=== PATIENT | female | born 1980 | race Hispanic/Latino ===

== ENCOUNTER 2018-06-14 22:29 | Observation (INO) | payer OTHER ==
[~2018-06-14] VITALS: Ht 157.5 cm; Wt 83.5 kg
[2018-06-14] MEDS ORDERED: KETOROLAC TROMETHAMINE 30 MG/ML VIAL IV STA (22:52)
[2018-06-14] MEDS ORDERED: ONDANSETRON HCL INJ 2 MG/ML VIAL IV STA (22:52)
[2018-06-14 23:22] LABS: BASOPHILS % 0.2 % (0.0-1.0); EOSINOPHILS # (AUTO) 0.2 (0.0-0.4); EOSINOPHILS % 1.6 % (0.0-6.0); HEMATOCRIT 32.9 % (34.2-44.1); HEMOGLOBIN 9.7 g/dL (12.0-16.0); LYMPHOCYTES % 32.3 % (18.0-39.1); MEAN CORPUSCULAR HEMOGLOBIN 22.2 pg (28-32); MEAN CORPUSCULAR HGB CONC 29.5 g/dL (31-35); MEAN CORPUSCULAR VOLUME 75.5 fL (81-99); MONOCYTES % 8.2 % (4.4-11.3); NEUTROPHILS # (AUTO) 7.1 (2.1-6.9); NEUTROPHILS % 57.2 % (38.7-80.0); PLATELET COUNT 383 x10e3/uL (140-360); RED BLOOD COUNT 4.36 x10e6/uL (3.6-5.1); RED CELL DISTRIBUTION WIDTH 15.9 % (11.7-14.4)
[2018-06-14 23:36] LABS: ALANINE AMINOTRANSFERASE 26 IU/L (0-55); ALBUMIN 3.6 g/dL (3.5-5.0); ALBUMIN/GLOBULIN RATIO 0.9 (0.8-2.0); ALKALINE PHOSPHATASE 88 IU/L (40-150); ANION GAP 14.8 mmol/L (8-16); BLOOD UREA NITROGEN 14 mg/dL (7-26); BUN/CREATININE RATIO 18 (6-25); CALCIUM 9.2 mg/dL (8.4-10.2); CARBON DIOXIDE 25 mmol/L (22-29); CHLORIDE 105 mmol/L (98-107); CREATININE, SERUM 0.77 mg/dL (0.57-1.11); EST GLOMERULAR FILTRATION RATE > 60 ML/MIN (60-); GLUCOSE 107 mg/dL (74-118); POTASSIUM 3.8 mmol/L (3.5-5.1); SODIUM 141 mmol/L (136-145)
[2018-06-14] MEDS ORDERED: LEVOTHYROXINE50 MCG PO (23:44)
[2018-06-14] MEDS ORDERED: PREDNISONE5 MG PO (23:44)
[2018-06-14 23:46] LABS: BILIRUBIN,URINE NEGATIVE (NEGATIVE); CLARITY,URINE HAZY (CLEAR); COLOR,URINE YELLOW (YELLOW); KETONES,URINE TRACE (NEGATIVE); LEUKOCYTE ESTERASE ,URINE 1+ (NEGATIVE); NITRITE,URINE NEGATIVE (NEGATIVE); PREGNANCY TEST, URINE NEGATIVE (NEGATIVE); PROTEIN,URINE DIPSTICK NEGATIVE (NEGATIVE); URINE UROBILINOGEN 0.2 mg/dL (0.2 - 1)
[2018-06-14 23:57] LABS: BACTERIA,URINE FEW /HPF; EPITHELIAL CELLS,URINE RARE /LPF; RBC,URINE 0-5 /HPF (0-5); WBC,URINE (MAN) >50 /HPF (0-5)
[2018-06-14] MEDS ORDERED: HYDROMORPHONE 1MG/1ML INJ IV STA (23:59)
[2018-06-15] MEDS ORDERED: ONDANSETRON HCL INJ 2 MG/ML VIAL IV STA (00:01)
--- NOTE | 2018-06-15 00:35 | Diagnostic Imaging Report ---
EXAM: CT ABDOMEN AND PELVIS without IV CONTRAST INDICATION: Left flank pain COMPARISON: None TECHNIQUE: The abdomen and pelvis were scanned using a multidetector helical scanner. Coronal and sagittal reformations were obtained. Renal stone protocol performed. IV Contrast: None Oral Contrast: None CTDIvol has been reviewed. It is below the limits set by the Radiation Protocol Committee (RPC). FINDINGS: LOWER THORAX: No consolidations LIVER: No masses BILIARY: Normal gallbladder. No ductal dilation. SPLEEN: No masses PANCREAS: No masses ADRENALS: No nodules RIGHT KIDNEY: No nephroureterolithiasis or hydronephrosis. LEFT KIDNEY: There is a 3 mm stone at the left ureterovesicular junction resulting in mild to moderate hydroureteronephrosis. GI TRACT: No wall thickening or obstruction. Small sliding hiatal hernia. Normal appendix. VESSELS: Unremarkable PERITONEUM/RETROPERITONEUM: No free air or fluid LYMPH NODES: No lymphadenopathy REPRODUCTIVE ORGANS: Normal BLADDER: Decompressed SOFT TISSUES: Normal BONES: No suspicious bone lesions. IMPRESSION: There is a 3 mm stone at the left ureterovesicular junction resulting in mild to moderate hydroureteronephrosis. Signed by: Dr. Stephani Priest M.D. on 06/15/2018 12:31 AM
[2018-06-15] MEDS ORDERED: CEFTRIAXONE SOD 1 GM VIAL IV SCH (01:00)
[2018-06-15] MEDS ORDERED: HYDROMORPHONE 1MG/1ML INJ IV PRN (01:15)
[2018-06-15] MEDS ORDERED: ONDANSETRON HCL INJ 2 MG/ML VIAL IV PRN (01:15)
[2018-06-15] MEDS: SODIUM CHLORIDE 0.9% 1000ML 1,000 ML IV SCH ×2 (01:29→09:10)
[2018-06-15 04:19] VITALS: BP 130/67
[2018-06-15 04:21] VITALS: BP 130/67
[2018-06-15 05:10] VITALS: BP 130/67
[2018-06-15 07:04] LABS: BASOPHILS % 0.3 % (0.0-1.0); EOSINOPHILS % 0.3 % (0.0-6.0); HEMATOCRIT 29.8 % (34.2-44.1); HEMOGLOBIN 8.9 g/dL (12.0-16.0); LYMPHOCYTES # (AUTO) 2.5 (1.0-3.2); LYMPHOCYTES % 20.5 % (18.0-39.1); MEAN CORPUSCULAR HEMOGLOBIN 22.5 pg (28-32); MEAN CORPUSCULAR HGB CONC 29.9 g/dL (31-35); MEAN CORPUSCULAR VOLUME 75.3 fL (81-99); MONOCYTES # (AUTO) 0.8 (0.2-0.8); NEUTROPHILS # (AUTO) 8.6 (2.1-6.9); NEUTROPHILS % 71.6 % (38.7-80.0); PLATELET COUNT 356 x10e3/uL (140-360); RED BLOOD COUNT 3.96 x10e6/uL (3.6-5.1); RED CELL DISTRIBUTION WIDTH 15.8 % (11.7-14.4)
[2018-06-15 08:12] VITALS: BP 130/67
[2018-06-15 08:18] VITALS: BP 109/61
--- NOTE | 2018-06-15 09:32 | Consultation ---
DATE OF CONSULTATION: June 15, 2018 UROLOGY CONSULTATION Consultation was called by Dr. Henson in the emergency room. CHIEF COMPLAINT AND REASON FOR CONSULTATION: Ureteral calculus. HISTORY OF PRESENT ILLNESS: Taylor Roberson is a 37-year-old female admitted to the hospital with nausea, vomiting and left-sided flank pain. Found to have a 3-mm left ureteral calculus. Denied fevers. No chills. Denied nausea. No vomiting. PAST MEDICAL HISTORY: Hypothyroidism. Eye laser surgery. Autoimmune disorder. MEDICATIONS: Please see MAR. ALLERGIES: NKDA. SOCIAL HISTORY: Denies smoking or drinking. FAMILY HISTORY: Denies urologic stones or malignancies. REVIEW OF SYSTEMS: Noncontributory other than problems as mentioned above for 12 organ systems. PHYSICAL EXAMINATION GENERAL: Middle-aged female in no acute distress. VITALS: Currently she is afebrile with stable vital signs. HEENT: Sclerae are anicteric. NECK: Supple. BACK: Without costovertebral angle tenderness bilaterally. ABDOMEN: Soft. It is nontender. It is nondistended. There is no palpable mass. No palpable hernias. No palpable inguinal adenopathy. : Normal female external genitalia. EXTREMITIES: Without edema. NEUROLOGIC: Moves all 4 extremities. PSYCH: Alert. Mood appropriate. SKIN: Intact. Normal color. PERTINENT LABORATORY DATA: CT scan revealing a 3-mm left ureterovesical junction stone and left hydronephrosis. Urinalysis: Greater than 50 whites, 0-5 reds. Sodium 141, potassium 3.8, chloride 105, bicarb 25, BUN 14, creatinine 0.77. Glucose 107. Hemoglobin 9.7. White blood cell count 12,400, no left shift. Platelet count 383,000. IMPRESSION 1. Small left ureteral calculus. 2. Left-sided hydronephrosis. 3. Question urinary tract infection. 4. Microscopic hematuria. 5. Renal colic. PLAN: Will employ a trial of passage. With a 3-mm stone, the patient has greater than 70% success. If the patient spikes a fever, she will need stenting. Will provide adequate pain control. Discussed medical expulsive therapy. Thank you for allowing us to participate in the care of your patient. Will be happy to follow along with you. TERA STEWART MD Job#: [id number] MH
[2018-06-15 12:24] VITALS: BP 114/63
--- NOTE | 2018-06-15 15:01 | History and Physical ---
CHIEF COMPLAINT: Abdominal pain that started last night and progressively got worse. HPI: Ms. Roberson is a 37-year-old female who presented to the emergency room with severe abdominal pain. She had ureteral calculus. It was associated with vomiting. She has history of dermatomyositis. She denies any complaints of chest pain, abdominal pain, nausea or vomiting now. REVIEW OF SYSTEMS GENERAL: Denies any fevers or chills. HEAD: Denies any head trauma. ENT: Denies any earache. CVS: Denies any chest pain. RESPIRATORY: Shortness of breath. GI: Abdominal pain, which has resolved. Patient has passed a stone. PAST MEDICAL HISTORY: Hypothyroidism and dermatomyositis. She is on chronic prednisone. FAMILY AND SOCIAL HISTORY: She does not smoke and does not drink. Denies any family history of heart disease. PHYSICAL EXAMINATION VITAL SIGNS: Temperature 98, pulse of 68, blood pressure 114/63, respiratory rate of 18. O2 sat 100% on room air. HEENT: Head atraumatic, normocephalic. NECK: Supple. CHEST: Clear to auscultation bilaterally. No wheezing. HEART: S1, S2 audible. ABDOMEN: Soft, nontender. EXTREMITIES: No clubbing, cyanosis or edema. NEUROLOGIC: Awake and alert. LABS: White count of 12,000, hemoglobin 8.9, platelets 356. Chemistries within normal limits. Urinalysis is showing more than [address]. Patient [address] a [address] abdomen and pelvis which showed a 3-mm stone at the left ureterovesical junction and mild to moderate hydroureteronephrosis. ASSESSMENT: Ms. Roberson is a 37-year-old female with a ureteral calculus and left-sided hydronephrosis. PLAN: The patient has passed a stone. If cleared by urology, the patient will be discharged home to follow up with Dr. Perez. Will continue the patient on Rocephin. May need p.o. antibiotic on discharge. Job#: [id number]
--- NOTE | 2018-06-15 16:31 | Discharge Summary ---
FINAL DIAGNOSES 1. Ureterolithiasis. 2. Dermatomyositis. 3. Hypothyroidism. ADMISSION HISTORY AND HOSPITAL COURSE: Please see the H\T\P. Patient is a same-day admit/discharge. Dr. Perez evaluated the patient. Patient has passed a kidney stone and will be discharged and she will follow up with Dr. Perez. Discharge medication list reviewed. I have prescribed her ciprofloxacin for 4 days for a UTI. ANA KNAPP MD Job#: [id number] EV
== END 2018-06-15 14:35 | disposition home or self-care (01) ==
LOC: ER 22:29 → ERHOLD 06-15 01:12 → IMCU 06-15 03:43
PROVIDERS: ADMIT Internal Medicine; ATTEND Internal Medicine
DX: N13.6 Pyonephrosis (principal); M33.10 Other dermatomyositis, organ involvement unspecified; E03.9 Hypothyroidism, unspecified
CPT/HCPCS: 36415 ×2; 74176; 80053; 81001; 81025; 85025 ×2; 87086; 88300; 96374; 96376; 99284; G0378; J0696; J1170; J1885; J2405 ×2; J7030

== ENCOUNTER 2021-02-16 09:01 | Emergency (ER) | payer OTHER ==
[~2021-02-16] VITALS: Ht 157.5 cm; Wt 83.5 kg
[~2021-02-16 09:01] MED LIST: LEVOTHYROXINE50 MCG PO; PREDNISONE5 MG PO
[2021-02-16] MEDS ORDERED: ONDANSETRON HCL INJ 2MG/ML 2ML 2 MG/ML VIAL IV STA (09:56)
[2021-02-16] MEDS ORDERED: SODIUM CHLORIDE 0.9% 1000ML 1,000 ML IV STA (09:56)
[2021-02-16] MEDS ORDERED: HYDROCODONE/APAP 5MG-325MG TAB PO ONE (10:00)
[2021-02-16] MEDS ORDERED: BAMLANIVIMAB 700 MG/20 ML VIAL IV ONE (10:00)
[2021-02-16] MEDS ORDERED: ONDANSETRON HCL INJ 2MG/ML 2ML 2 MG/ML VIAL ONE (10:22)
[2021-02-16] MEDS ORDERED: BAMLANIVIMAB 700 MG in SODIUM CHLORIDE 0.9% 250ML 250 ML IV ONE (11:00)
[2021-02-16 11:13] LABS: BASOPHILS % 0.2 % (0.0-1.0); EOSINOPHILS % 0.2 % (0.0-6.0); HEMATOCRIT 33.3 % (34.2-44.1); HEMOGLOBIN 9.5 g/dL (12.0-16.0); LYMPHOCYTES # (AUTO) 0.7 (1.0-3.2); LYMPHOCYTES % 16.9 % (18.0-39.1); MEAN CORPUSCULAR HGB CONC 28.5 g/dL (31-35); MEAN CORPUSCULAR VOLUME 70.3 fL (81-99); MONOCYTES # (AUTO) 0.3 (0.2-0.8); MONOCYTES % 7.2 % (4.4-11.3); NEUTROPHILS # (AUTO) 3.1 (2.1-6.9); PLATELET COUNT 202 x10e3/uL (140-360); RED BLOOD COUNT 4.74 x10e6/uL (3.6-5.1); RED CELL DISTRIBUTION WIDTH 19.8 % (11.7-14.4)
[2021-02-16 11:29] LABS: ALANINE AMINOTRANSFERASE 18 IU/L (0-55); ALBUMIN 3.6 g/dL (3.5-5.0); ALBUMIN/GLOBULIN RATIO 0.9 (0.8-2.0); ALKALINE PHOSPHATASE 64 IU/L (40-150); ANION GAP 13.2 mmol/L (8-16); BLOOD UREA NITROGEN 5 mg/dL (7-26); BUN/CREATININE RATIO 8 (6-25); CALCIUM 8.3 mg/dL (8.4-10.2); CARBON DIOXIDE 27 mmol/L (22-29); CHLORIDE 103 mmol/L (98-107); CREATININE, SERUM 0.63 mg/dL (0.57-1.11); EST GLOMERULAR FILTRATION RATE > 60 ML/MIN (60-); GLUCOSE 92 mg/dL (74-118); POTASSIUM 3.2 mmol/L (3.5-5.1); SODIUM 140 mmol/L (136-145)
== END 2021-02-16 12:10 | disposition home or self-care (01) ==
LOC: ER 10:00
DX: U07.1 COVID-19 (principal); R50.9 Fever, unspecified; R06.02 Shortness of breath; R11.0 Nausea; R53.81 Other malaise; E03.9 Hypothyroidism, unspecified
CPT/HCPCS: 36415; 71045; 80053; 84702; 85025; 99284; J2405; J7030; J7050

== ENCOUNTER 2021-02-17 08:45 | Emergency (ER) | payer OTHER ==
[~2021-02-17] VITALS: Ht 157.5 cm; Wt 83.5 kg
[2021-02-17] MEDS ORDERED: IBUPROFEN 600 MG TAB PO STA (09:07)
[2021-02-17] MEDS ORDERED: SODIUM CHLORIDE 0.9% 1000ML 1,000 ML IV STA (09:07)
[2021-02-17] MEDS ORDERED: BAMLANIVIMAB 700 MG/20 ML VIAL IV ONE (09:15)
[2021-02-17] MEDS ORDERED: BAMLANIVIMAB 700 MG in SODIUM CHLORIDE 0.9% 250ML 250 ML IV ONE (09:30)
[2021-02-17 11:49] VITALS: BP 107/61
[2021-02-18] MEDS ORDERED: AZITHROMYCIN250 MG PO (11:57)
[2021-02-18] MEDS ORDERED: VENTOLIN HFA18 GM INH (11:57)
[2021-02-18] MEDS ORDERED: PREDNISONE20 MG PO (11:57)
== END 2021-02-17 11:45 | disposition home or self-care (01) ==
LOC: ER 09:00
DX: U07.1 COVID-19 (principal); R50.9 Fever, unspecified; R53.83 Other fatigue; E03.9 Hypothyroidism, unspecified; M33.90 Dermatopolymyositis, unspecified, organ involvement unspecified
CPT/HCPCS: 99283; J7030; J7050

== ENCOUNTER 2021-02-18 10:00 | Emergency (ER) | payer OTHER ==
[~2021-02-18] VITALS: Ht 157.5 cm; Wt 83.5 kg
[2021-02-18] MEDS ORDERED: AZITHROMYCIN250 MG PO (11:57)
[2021-02-18] MEDS ORDERED: PREDNISONE20 MG PO (11:57)
[2021-02-18] MEDS ORDERED: VENTOLIN HFA18 GM INH (11:57)
[2021-02-18 12:01] VITALS: BP 131/78
== END 2021-02-18 12:02 | disposition home or self-care (01) ==
LOC: ER 10:05
DX: U07.1 COVID-19 (principal); R05 Cough; R06.02 Shortness of breath; R53.83 Other fatigue; E03.9 Hypothyroidism, unspecified; M33.90 Dermatopolymyositis, unspecified, organ involvement unspecified
CPT/HCPCS: 71250; 99283

== ENCOUNTER 2021-03-01 19:55 | Emergency (ER) | payer OTHER ==
[~2021-03-01] VITALS: Ht 157.5 cm; Wt 83.5 kg
[~2021-03-01 19:55] MED LIST changes: +AZITHROMYCIN250 MG PO; +PREDNISONE20 MG PO; +VENTOLIN HFA18 GM INH
[2021-03-01] MEDS ORDERED: ASPIRIN 81 MG CHEW TAB PO ONE (20:00)
[2021-03-01 20:23] LABS: BASOPHILS # (AUTO) 0.1 (0.0-0.1); BASOPHILS % 0.6 % (0.0-1.0); EOSINOPHILS # (AUTO) 0.1 (0.0-0.4); EOSINOPHILS % 1.1 % (0.0-6.0); HEMATOCRIT 33.7 % (34.2-44.1); HEMOGLOBIN 9.7 g/dL (12.0-16.0); LYMPHOCYTES # (AUTO) 2.6 (1.0-3.2); LYMPHOCYTES % 24.6 % (18.0-39.1); MEAN CORPUSCULAR HEMOGLOBIN 21.5 pg (28-32); MEAN CORPUSCULAR HGB CONC 28.8 g/dL (31-35); MEAN CORPUSCULAR VOLUME 74.6 fL (81-99); MONOCYTES % 9.6 % (4.4-11.3); NEUTROPHILS # (AUTO) 6.7 (2.1-6.9); NEUTROPHILS % 63.6 % (38.7-80.0); PLATELET COUNT 444 x10e3/uL (140-360); RED BLOOD COUNT 4.52 x10e6/uL (3.6-5.1); RED CELL DISTRIBUTION WIDTH 23.7 % (11.7-14.4)
[2021-03-01 20:45] LABS: ALANINE AMINOTRANSFERASE 22 IU/L (0-55); ALBUMIN 3.5 g/dL (3.5-5.0); ALBUMIN/GLOBULIN RATIO 0.9 (0.8-2.0); ALKALINE PHOSPHATASE 71 IU/L (40-150); ANION GAP 15.8 mmol/L (8-16); BLOOD UREA NITROGEN 11 mg/dL (7-26); BUN/CREATININE RATIO 19 (6-25); CALCIUM 8.5 mg/dL (8.4-10.2); CARBON DIOXIDE 23 mmol/L (22-29); CHLORIDE 105 mmol/L (98-107); CREATINE KINASE 38 IU/L (29-168); CREATININE, SERUM 0.59 mg/dL (0.57-1.11); EST GLOMERULAR FILTRATION RATE > 60 ML/MIN (60-); GLUCOSE 98 mg/dL (74-118); POTASSIUM 3.8 mmol/L (3.5-5.1); SODIUM 140 mmol/L (136-145)
== END 2021-03-01 21:45 | disposition home or self-care (01) ==
LOC: ER 20:21
DX: R00.2 Palpitations (principal); R42 Dizziness and giddiness; E03.9 Hypothyroidism, unspecified
CPT/HCPCS: 36415; 71045; 80053; 81025; 82550; 82553; 83880; 84484; 85025; 85379; 93005; 99284